=== PATIENT | female | born 1980 | race Caucasian/White ===

== ENCOUNTER → 2020-04-12 16:43 | Outpatient (CLI) | payer SELFPAY ==
[2020-04-12 14:32] VITALS: BMI 39.4
[2020-04-17 01:16] LABS: HPV APTIMA, High Risk Negative (Negative)
== END ==
PROVIDERS: Referring Provider Nurse Practitioner Women's Health; Visit Provider Nurse Practitioner Women's Health
DX: Z12.4 Encounter for screening for malignant neoplasm of cervix (principal)
CPT/HCPCS: 87624; 88175; G0145